=== PATIENT | female | born 1960 | race Native Hawaiian/Other Pacific Islander ===

== ENCOUNTER 2020-03-11 11:37 | Outpatient (CLI) | payer OTHER | END 2020-03-11 21:24 | disposition home or self-care (01) | LOC: RAD 11:37 | DX: J44.9 Chronic obstructive pulmonary disease, unspecified (principal); M54.5 Low back pain; M54.2 Cervicalgia; M25.512 Pain in left shoulder; M25.511 Pain in right shoulder; R41.3 Other amnesia; R03.0 Elevated blood-pressure reading, without diagnosis of hypertension; G25.81 Restless legs syndrome; F32.89 Other specified depressive episodes ==